=== PATIENT | male | born 1970 | race Caucasian/White ===

== ENCOUNTER 2020-11-05 20:35 | Emergency (ER) | payer OTHER ==
[2020-11-05 20:45] VITALS: BP 153/90; PULSE 63; TEMP 97.7; BMI 24.9
[2020-11-05] MEDS ORDERED: ACETAMINOPHEN 500 MG TABLET (FP) PO ONE (22:19)
[2020-11-05] MEDS ORDERED: ACETAMINOPHEN 500 MG TABLET (FP) ONE (22:21)
== END 2020-11-05 23:57 | disposition home or self-care (01) ==
LOC: FER 20:35
DX: R68.84 Jaw pain (principal); S06.0X0A Concussion without loss of consciousness, initial encounter
CPT/HCPCS: 70450-TC; 70486-TC; 71046-TC-FY; 99285-25

== ENCOUNTER 2023-05-04 19:53 | Emergency (ER) | payer OTHER ==
[2023-05-04 20:04] VITALS: BP 117/84; PULSE 72; RESP 16; TEMP 97.8; BMI 26.3
== END 2023-05-04 21:33 | disposition home or self-care (01) ==
LOC: FER 19:53
DX: S40.012A Contusion of left shoulder, initial encounter (principal); S50.02XA Contusion of left elbow, initial encounter; S50.01XA Contusion of right elbow, initial encounter; S60.811A Abrasion of right wrist, initial encounter; M54.2 Cervicalgia; W01.0XXA Fall on same level from slipping, tripping and stumbling without subsequent striking against object, initial encounter
CPT/HCPCS: 72050-TC-FY; 73030-TC-LT-FY; 73070-TC-LT-FY; 73070-TC-RT-FY; 73110-TC-RT-FY; 99284-25

== ENCOUNTER 2024-02-26 10:39 | Emergency (ER) | payer OTHER ==
[2024-02-26 10:48] VITALS: BP 122/74; PULSE 79; RESP 18; TEMP 99; BMI 27.1
[2024-02-26] MEDS ORDERED: ACETAMINOPHEN 325 MG TABLET (FP) ONE (11:48)
[2024-02-26] MEDS: ACETAMINOPHEN 500 MG TABLET (FP) PO ONE (11:51)
[2024-02-26 12:06] LABS: PH,URINE 5.5 (5.0-8.0); URINE APPEARANCE CLEAR; URINE BILIRUBIN NEGATIVE (NEGATIVE); URINE COLOR YELLOW; URINE GLUCOSE (UA) NEGATIVE (NEGATIVE); URINE KETONE TRACE (NEGATIVE); URINE LEUK ESTERASE NEGATIVE (NEGATIVE); URINE NITRITE NEGATIVE (NEGATIVE); URINE PROTEIN TRACE (NEGATIVE); URINE UROBILINOGEN 0.2 mg/dL (0.2-1.0)
== END 2024-02-26 13:49 | disposition home or self-care (01) ==
LOC: JER 10:39
DX: R53.1 Weakness (principal); R51.9 Headache, unspecified; M25.50 Pain in unspecified joint; R61 Generalized hyperhidrosis; U07.1 COVID-19
CPT/HCPCS: 0241U-QW; 71046-TC-FY; 81003; 87086; 93005; 93010; 99285-25

== ENCOUNTER 2025-03-14 08:34 | Inpatient (IN) | payer OTHER ==
[2025-03-14 10:29] LABS: ABSOLUTE IMMATURE GRANULOCYTES 0.29 x10^3/uL (0.0-0.031); BASOPHILS # 0.09 x10^3/uL (0.01-0.08); EOSINOPHIL % 1.8 % (0.8-7.0); EOSINOPHILS # 0.29 x10^3/uL (0.04-0.54); MCHC 32.8 g/dl (32.3-36.5); MEAN CELL VOLUME 90.3 fl (79.0-92.2); MEAN PLT VOLUME 8.9 fl (9.4-12.4); MONOCYTE # 2.27 x10^3/uL (0.30-0.82); MONOCYTE % 14.1 % (5.3-12.2); RDW 13.6 % (12.2-16.1)
[2025-03-14 10:36] LABS: INR 0.92 (0.83-1.09); PROTHROMBIN TIME (PATIENT) 10.1 SEC (9.7-13.0)
[2025-03-14] MEDS: SODIUM CHLORIDE 0.9% 1000 ML INFUS.BAG IV ONE (11:03)
[2025-03-14 11:04] LABS: CO2 29.0 mmol/L (21-32); GLUCOSE,RANDOM 103.0 mg/dL (74-106)
[2025-03-14 11:07] LABS: SGOT/AST 20.0 U/L (15-37); SGPT/ALT 40.0 U/L (13-61)
[2025-03-14 11:08] LABS: CREATININE 0.9 mg/dL (0.55-1.3)
[2025-03-14 11:09] LABS: TOT PROT 6.3 g/dl (6.4-8.2)
[2025-03-14 11:10] LABS: ALK PHOS 72.0 U/L (45-117)
[2025-03-14 12:02] LABS: HCV DIAGNOSTIC IN-HOUSE W/RFLX NON-REACTIVE (NONREACTIVE)
[2025-03-14 16:39] LABS: URINE APPEARANCE CLOUDY; URINE BILIRUBIN NEGATIVE (NEGATIVE); URINE COLOR YELLOW; URINE GLUCOSE (UA) NEGATIVE (NEGATIVE); URINE KETONE NEGATIVE (NEGATIVE); URINE LEUK ESTERASE NEGATIVE (NEGATIVE); URINE NITRITE NEGATIVE (NEGATIVE); URINE PROTEIN NEGATIVE (NEGATIVE); URINE UROBILINOGEN 0.2 mg/dL (0.2-1.0)
[2025-03-14] MEDS: VANCOMYCIN HCL 125 MG CAPSULE (RESTRICTED TO ID ONLY) PO SCH (18:08)
[2025-03-14 22:34] LABS: HIV INTERPRETATION NEGATIVE (NEGATIVE)
[2025-03-14] MEDS: GABAPENTIN 400 MG CAPSULE PO SCH (23:29)
[2025-03-15] MEDS ORDERED: BUPIVACAINE HCL/PF 0.5% (5MG/ML) 10 ML VIAL ONE (07:33)
[2025-03-15] MEDS ORDERED: THROMBIN (BOVINE) 20,000 UNIT VIAL TP ONE (07:33)
[2025-03-15] MEDS ORDERED: VANCOMYCIN 1,000 MG VIAL (RESTRICTED TO ID ONLY) ONE (07:33)
[2025-03-15] MEDS ORDERED: ONDANSETRON 4 MG/2 ML VIAL IVPUSH PRN ×2 (08:04→10:27)
[2025-03-15] MEDS ORDERED: LACTATED RINGERS SOLUTION 1,000 ML IV SCH (08:15)
[2025-03-15] MEDS ORDERED: LIDOCAINE 1%/EPI 1:100000 (20 ML MULTI DOSE VIAL) ONE (08:28)
[2025-03-15] MEDS: LIDOCAINE HCL 1%, 10 MG/ML (20ML VIAL) ID ONE (08:45)
[2025-03-15 08:48] LABS: ABSOLUTE IMMATURE GRANULOCYTES 0.20 x10^3/uL (0.0-0.031); BASOPHILS # 0.05 x10^3/uL (0.01-0.08); EOSINOPHIL % 3.5 % (0.8-7.0); EOSINOPHILS # 0.30 x10^3/uL (0.04-0.54); MCHC 32.5 g/dl (32.3-36.5); MEAN CELL VOLUME 91.8 fl (79.0-92.2); MEAN PLT VOLUME 9.5 fl (9.4-12.4); MONOCYTE # 1.17 x10^3/uL (0.30-0.82); MONOCYTE % 13.5 % (5.3-12.2); RDW 13.7 % (12.2-16.1)
[2025-03-15] MEDS: THROMBIN (BOVINE) 20,000 UNIT VIAL TP ONE (08:50)
[2025-03-15] MEDS: THROMBIN (BOVINE) 5,000 UNIT VIAL TP ONE (08:55)
[2025-03-15] MEDS: BUPIVACAINE HCL/PF 0.5% (5 MG/ML) 30 ML VIAL IJ ONE ×2 (09:00→09:52)
[2025-03-15] MEDS: VANCOMYCIN 1,000 MG VIAL (RESTRICTED TO ID ONLY) IVPB ONE ×2 (09:01→09:30)
[2025-03-15] MEDS: methylPREDNISolone ACET (DEPO) 80 MG/1 ML VIAL IJ ONE (09:40)
[2025-03-15 09:56] LABS: CO2 27.0 mmol/L (21-32)
[2025-03-15 09:57] LABS: GLUCOSE,RANDOM 87.0 mg/dL (74-106)
[2025-03-15 10:00] LABS: CREATININE 0.9 mg/dL (0.55-1.3); SGOT/AST 17.0 U/L (15-37); SGPT/ALT 31.0 U/L (13-61); TOT PROT 5.4 g/dl (6.4-8.2)
[2025-03-15 10:02] LABS: ALK PHOS 59.0 U/L (45-117)
[2025-03-15] MEDS: VANCOMYCIN ORAL SOLUTION 125 MG/2.5 ML PO SCH (14:10)
[2025-03-15] MEDS: GABAPENTIN 400 MG CAPSULE PO SCH (14:10)
[2025-03-15] MEDS: LACTATED RINGERS SOLUTION 1,000 ML IV SCH (20:17)
[2025-03-15] MEDS: BANATROL PLUS POWDER PACKET PO SCH (21:58)
[2025-03-16 06:49] LABS: MCHC 32.5 g/dl (32.3-36.5); MEAN CELL VOLUME 93.3 fl (79.0-92.2); MEAN PLT VOLUME 9.5 fl (9.4-12.4); RDW 13.4 % (12.2-16.1)
[2025-03-16 07:26] LABS: CO2 26.0 mmol/L (21-32); GLUCOSE,RANDOM 134.0 mg/dL (74-106)
[2025-03-16 07:28] LABS: CREATININE 0.8 mg/dL (0.55-1.3); SGOT/AST 16.0 U/L (15-37); SGPT/ALT 27.0 U/L (13-61)
[2025-03-16 07:30] LABS: TOT PROT 5.4 g/dl (6.4-8.2)
[2025-03-16 07:31] LABS: ALK PHOS 59.0 U/L (45-117)
[2025-03-16 12:50] VITALS: BMI 25.0
[2025-03-16] MEDS: AMINO ACIDS/PROTEIN HYDROLYS 30 ML LIQUID.PKT PO SCH (18:19)
[2025-03-16 20:43] VITALS: RESP 18; TEMP 98.1
[2025-03-17 08:40] LABS: MCHC 32.6 g/dl (32.3-36.5); MEAN CELL VOLUME 92.1 fl (79.0-92.2); MEAN PLT VOLUME 9.4 fl (9.4-12.4); RDW 13.4 % (12.2-16.1)
[2025-03-17 09:40] LABS: CO2 28.0 mmol/L (21-32); GLUCOSE,RANDOM 96.0 mg/dL (74-106)
[2025-03-17 09:43] LABS: CREATININE 0.7 mg/dL (0.55-1.3)
[2025-03-17 14:30] VITALS: BP 127/77; PULSE 92
== END 2025-03-17 17:24 | disposition home or self-care (01) | DRG 519 ==
LOC: JER 08:34 → JERBED 09:57 → J7W 21:23
PROVIDERS: ADMIT Family Medicine; ATTEND Family Medicine
PROC: 01NR0ZZ Release Sacral Nerve, Open Approach (ICD-10-PCS; 2025-03-15)
PROC: 0SB40ZZ Excision of Lumbosacral Disc, Open Approach (ICD-10-PCS; principal; 2025-03-15 11:15)
DX: M51.17 Intervertebral disc disorders with radiculopathy, lumbosacral region (principal); A04.72 Enterocolitis due to Clostridium difficile, not specified as recurrent; M48.07 Spinal stenosis, lumbosacral region; K21.9 Gastro-esophageal reflux disease without esophagitis
CPT/HCPCS: 36415; 71045-TC-FY; 76000-TC-FY; 80048; 80053; 81003; 83735; 85025; 85027; 85610; 86803; 86850; 86900; 86901; 87015; 87045; 87046; 87086; 87205; 87207; 87324; 87328; 87329; 87389; 87449; 93005; 93010; 94760; 97116-GP; 97162-GP; 99285-25